=== PATIENT | female | born 1985 ===

== ENCOUNTER 2022-01-21 15:41 | Outpatient (CLI) | payer BC, SELFPAY ==
--- NOTE | ~2022-01-21 | MR_ITS ---
EXAMINATION: MR brain/brain stem wo/w con DATE: 01/21/2022 16:34 INDICATION: Meningioma. Abnormal head CT. TECHNIQUE: Magnetic resonance imaging (MRI) of the brain and brainstem was performed without and with 13 mL MultiHance intravenous contrast. Sequences included sagittal and axial T1-weighted FSE, axial diffusion-weighted FS EPI, axial T2*-weighted GRE, axial T2-weighted FLAIR Propeller, and axial T2-we ighted Propeller. Postcontrast sequences included axial and coronal T1-weighted FSE. Apparent diffusi on coefficient (ADC) maps were created. COMPARISON: None. FINDINGS: There is no intracranial hemorrhage, acute infarction, or abnormal intracranial mass lesion . The ventricles are normal in size. There is mild mucosal thickening in the ethmoid sinuses. The orb its are normal. The mastoid air cells are normal. IMPRESSION: 1. Normal brain. No meningioma identified. Reviewed, dictated and finalized at location A.
[2022-01-21 16:13] LABS: Estimated Glomerular Filt Rate > 60
== END 2022-01-21 15:42 ==
DX: R90.89 Other abnormal findings on diagnostic imaging of central nervous system (principal)
CPT/HCPCS: 70553; A9577